=== PATIENT | female | born 1965 | race Caucasian/White ===

== ENCOUNTER 2021-11-30 04:51 | Day surgery (SDC) | payer OTHER ==
[2021-11-22 15:49] VITALS: BMI 25.8
[2021-11-30 11:03] VITALS: BP 107/61; PULSE 83; TEMP 98
== END 2021-11-30 11:17 | disposition home or self-care (01) ==
LOC: JASU-ENDO 04:51
PROVIDERS: ATTEND Internal Medicine Gastroenterology
PROC: 0DJD8ZZ Inspection of Lower Intestinal Tract, Via Natural or Artificial Opening Endoscopic (ICD-10-PCS; principal; 2021-11-30 10:00)
DX: Z12.11 Encounter for screening for malignant neoplasm of colon (principal); R10.13 Epigastric pain